=== PATIENT | male | born 1960 | race Caucasian/White ===

== ENCOUNTER 2017-08-19 07:41 | Day surgery (SDC) | payer BC ==
[2017-08-17 16:19] VITALS: BMI 26.5
[~2017-08-19 07:41] MED LIST: LACTATED RINGERS 1,000 ML IV SCH
[2017-08-19 08:07] VITALS: RESP 16; TEMP 97.6
[2017-08-19] MEDS ORDERED: LIDOCAINE 1% 20 ML VIAL (10MG/ML) FOR IV START INTRADERMA ONE (08:17)
[2017-08-19] MEDS ORDERED: PROPOFOL 10 MG/ML 20 ML VIAL IV ONE (09:13)
[2017-08-19] MEDS ORDERED: LIDOCAINE 1% INJ 10MG/ML (20 ML MDV) ONE (09:13)
--- NOTE | 2017-08-19 09:17 | P.GSHP ---
History of Present Illness H&P Date: 08/19/17 Chief Complaint: Screening colonoscopy 's is a 56-year-old male referred from Dr. Jossy noland. Patient presents today for screening colonoscopy. He denies any significant GI complaints. Patient's previous history of right colectomy for colonic polyps. Past Medical History Past Medical History: Hypertension Additional Past Medical History / Comment(s): GLAUCOMA RIGHT EYE, STRAINED TENDON RIGHT FOOT, HX OF HEPATITIS C WITH TX 2016., HX OF RIGHT HEMICOLECTOMY FOR PRECANCEROUS POLYPS (2009). History of Any Multi-Drug Resistant Organisms: None Reported Past Surgical History: Bowel Resection, Orthopedic Surgery Additional Past Surgical History / Comment(s): RIGHT CATARACT WITH LENS IMPLANT & STENT., RIGHT ANKLE FX WITH PINS & HARDWARE., RIGHT HEMICOLECTOMY (1/3 OF BOWEL REMOVED-2009) Past Anesthesia/Blood Transfusion Reactions: No Reported Reaction Past Psychological History: No Psychological Hx Reported Smoking Status: Never smoker Past Alcohol Use History: Abuse Additional Past Alcohol Use History / Comment(s): NO ALCOHOL FOR 2 WEEKS- TAKING ANTABUSE., STATES HX OF HEAVY ALCOHOL USE -SOME DAYS 1 PINT/DAY Past Drug Use History: Marijuana Additional Drug Use History / Comment(s): NO CURRENT MARIJUANA USE - Past Family History Father Family Medical History: Cancer Additional Family Medical History / Comment(s): LEUKEMIA Medications and Allergies Home Medications Medication Instructions Recorded Confirmed Type Bimatoprost [Lumigan .01% Ophth 1 drop RIGHT EYE HS 08/17/17 08/17/17 History Soln] Brimonidine Tartrate [Alphagan P 1 drops RIGHT EYE BID 08/17/17 08/17/17 History 0.15% Ophth Soln] Disulfiram [Antabuse] 250 mg PO DAILY 08/17/17 08/17/17 History Ibuprofen 200 mg PO DAILY PRN 08/17/17 08/17/17 History Losartan [Cozaar] 25 mg PO DAILY 08/17/17 08/17/17 History Allergies Allergy/AdvReac Type Severity Reaction Status Date / Time adhesive tape AdvReac Unknown RED Verified 08/19/17 07:56 IRRITATED SKIN Surgical - Exam Vital Signs Temp Pulse Resp BP Pulse Ox 97.6 F 76 16 137/88 97 08/19/17 08:06 08/19/17 08:06 08/19/17 08:06 08/19/17 08:06 08/19/17 08:06 - General well developed, no distress - Eyes PERRL - ENT normal pinna - Neck no masses - Respiratory normal expansion - Cardiovascular Rhythm: regular - Abdomen Abdomen: soft, non tender Assessment and Plan Assessment: History of colonic polyps. We'll perform colonoscopy.
--- NOTE | 2017-08-19 09:36 | P.OP ---
Date of Procedure: 08/19/17 Preoperative Diagnosis: Screening colonoscopy Postoperative Diagnosis: Mild Diverticulosis Procedure(s) Performed: Colonoscopy Anesthesia: MAC Surgeon: Tuan Rhodes Pathology: none sent Condition: stable Disposition: PACU Description of Procedure: The patient's placed on the endoscopy table lateral position. He received IV sedation. Digital rectal exam was performed which revealed no abnormalities. The flexible colonoscope was then placed patient anus passed throughout the entire colon. The patient a previous right colectomy. The ileocolonic anastomosis was visualized. The transverse colon and descending colon appeared normal. In the sigmoid colon there was a few scattered diverticula. Scope was then brought back the rectum and this appeared normal. Scope was withdrawn for patient.
[2017-08-19 10:01] VITALS: BP 121/89; PULSE 52
== END 2017-08-19 10:05 | disposition home or self-care (01) ==
LOC: ORWHC2ENDO 07:41
PROVIDERS: ATTEND Surgery
DX: Z12.11 Encounter for screening for malignant neoplasm of colon (principal); K57.30 Diverticulosis of large intestine without perforation or abscess without bleeding; I10 Essential (primary) hypertension; E78.5 Hyperlipidemia, unspecified; Z86.010 Personal history of colon polyps; Z91.048 Other nonmedicinal substance allergy status; Z79.899 Other long term (current) drug therapy; Z86.19 Personal history of other infectious and parasitic diseases; Z98.0 Intestinal bypass and anastomosis status; Z90.49 Acquired absence of other specified parts of digestive tract
CPT/HCPCS: J2001; J2704; G0105

== ENCOUNTER 2019-08-10 14:08 | Inpatient (IN) | payer BC, MEDICAID, OTHER ==
--- NOTE | 2019-08-10 15:14 | ED ---
Psych HPI <Yuriy Echevarria - Last Filed: 08/10/19 22:25> <Diomedes Leblanc - Last Filed: 08/11/19 11:28> - General Source: patient, RN notes reviewed Mode of arrival: ambulatory - History of Present Illness MD Complaint: suicidal ideation, feels depressed <Miguel Fitzpatrick - Last Filed: 08/11/19 15:38> - General Chief Complaint: Psychiatric Symptoms Stated Complaint: mental health eval Time Seen by Provider: 08/10/19 14:33 - History of Present Illness Initial Comments: This is a 58-year-old male with a history of depression who does admit to drinking alcohol and using crack cocaine who was brought in today for evaluation because he initially depressed. He does not seem to have a plan is how to hurt himself however. He does admit to drinking alcohol today and using cocaine recently. He is feeling depressed over multiple issues he states his last September. He's been involved with a personal was in his building that he loves no complaints of modifying factors at this time (Miguel Fitzpatrick) - Related Data Home Medications Medication Instructions Recorded Confirmed Bimatoprost [Lumigan .01% Ophth 1 drop RIGHT EYE HS 08/17/17 08/17/17 Soln] Brimonidine Tartrate [Alphagan P 1 drops RIGHT EYE BID 08/17/17 08/17/17 0.15% Ophth Soln] Disulfiram [Antabuse] 250 mg PO DAILY 08/17/17 08/17/17 Ibuprofen 200 mg PO DAILY PRN 08/17/17 08/17/17 Losartan [Cozaar] 25 mg PO DAILY 08/17/17 08/17/17 Allergies Allergy/AdvReac Type Severity Reaction Status Date / Time adhesive tape AdvReac Unknown RED Verified 08/10/19 14:16 IRRITATED SKIN Review of Systems ROS Other: All systems not noted in ROS Statement are negative. <Yuriy Echevarria - Last Filed: 08/10/19 22:25> ROS Other: All systems not noted in ROS Statement are negative. <Diomedes Leblanc - Last Filed: 08/11/19 11:28> ROS Other: All systems not noted in ROS Statement are negative. <Miguel Fitzpatrick - Last Filed: 08/11/19 15:38> ROS Statement: Those systems with pertinent positive or pertinent negative responses have been documented in the HPI. Past Medical History Past Medical History: Hypertension Additional Past Medical History / Comment(s): GLAUCOMA RIGHT EYE, STRAINED TENDON RIGHT FOOT, HX OF HEPATITIS C WITH TX 2017., HX OF RIGHT HEMICOLECTOMY FOR PRECANCEROUS POLYPS (2009). History of Any Multi-Drug Resistant Organisms: None Reported Past Surgical History: Bowel Resection, Orthopedic Surgery Additional Past Surgical History / Comment(s): RIGHT CATARACT WITH LENS IMPLANT & STENT., RIGHT ANKLE FX WITH PINS & HARDWARE., RIGHT HEMICOLECTOMY (1/3 OF BOWEL REMOVED-2009) Past Anesthesia/Blood Transfusion Reactions: No Reported Reaction Past Psychological History: Depression Smoking Status: Never smoker Past Alcohol Use History: Abuse Past Drug Use History: Marijuana - Past Family History Father Family Medical History: Cancer Additional Family Medical History / Comment(s): LEUKEMIA <Miguel Fitzpatrick Filed: 08/11/19 15:38> General Exam Limitations: no limitations General appearance: alert, anxious Head exam: Present: atraumatic, normocephalic, normal inspection Eye exam: Present: normal appearance, PERRL, EOMI. Absent: scleral icterus, conjunctival injection, periorbital swelling ENT exam: Present: normal exam, mucous membranes moist Neck exam: Present: normal inspection. Absent: tenderness, meningismus, lymphadenopathy Respiratory exam: Present: normal lung sounds bilaterally. Absent: respiratory distress, wheezes, rales, rhonchi, stridor Cardiovascular Exam: Present: regular rate, normal rhythm, normal heart sounds. Absent: systolic murmur, diastolic murmur, rubs, gallop, clicks GI/Abdominal exam: Present: soft, normal bowel sounds. Absent: distended, tenderness, guarding, rebound, rigid Extremities exam: Present: normal inspection, full ROM, normal capillary refill. Absent: tenderness, pedal edema, joint swelling, calf tenderness Back exam: Present: normal inspection Neurological exam: Present: alert, oriented X3, CN II-XII intact Psychiatric exam: Present: normal affect, depressed, flat affect, suicidal ideation Skin exam: Present: warm, dry, intact, normal color. Absent: rash <Miguel Fitzpatrick Filed: 08/11/19 15:38> - General Exam Comments Initial Comments: This is a well-developed well-nourished awake alert oriented times female he does have the smell of alcohol conjoiners on his breath (Miguel Fitzpatrick) Course <AmariMiguel - Last Filed: 08/11/19 15:38> Vital Signs 08/10/19 08/10/19 08/11/19 14:10 16:11 06:00 Temperature 98.0 F 98.4 F Pulse Rate 94 97 Respiratory 18 18 18 Rate Blood Pressure 136/92 135/96 O2 Sat by Pulse 97 97 Oximetry 08/11/19 08/11/19 09:03 11:57 Temperature 98.4 F 98.4 F Pulse Rate 73 84 Respiratory 18 18 Rate Blood Pressure 143/92 157/84 O2 Sat by Pulse 97 100 Oximetry - Reevaluation(s) Reevaluation #1: 08/10/19 15:13 The patient did register 0.236 on the breath alcohol test. Patient care will be endorsed to Dr. Echevarria at our shift change (Miguel Fitzpatrick) Reevaluation #2: 08/11/19 15:37 The patient was resting comfortably throughout the morning and afternoon hours and was admitted to the psychiatric unit for evaluation depression and suicidal ideation (Miguel Fitzpatrick) Medical Decision Making <Yuriy Echevarria - Last Filed: 08/10/19 22:25> <Diomedes Leblanc - Last Filed: 08/11/19 11:28> - Medical Decision Making Patient care was signed out to me by previous shift physician Dr. Fitzpatrick. Plan at sign out was to follow-up with EPS recommendations. Patient will be evaluated as early as 10:30 PM by EPS based on patient's a call test. During my shift patient has not been evaluated by EPS yet. He is signed out to oncoming physician Dr. Toscano (Yuriy Echevarria) I request of emergency psychiatric services ideally patient for rash on dorsum of the forearms. Scab skin excoriations are noted. Patient reports his abdominal ongoing for approximately a month. Patient was seen in the health department and was treated with permethrin for scabies. Patient reports that it has been since improving. States that one other friend at his house also had the same rash. Denies any other areas of rash. No oropharyngeal involvement. (Diomedes Leblanc) - Lab Data Lab Results 08/10/19 Range/Units 23:31 Urine Opiates Screen Not Detected (NotDetected) Ur Oxycodone Screen Not Detected (NotDetected) Urine Methadone Screen Not Detected (NotDetected) Ur Propoxyphene Screen Not Detected (NotDetected) Ur Barbiturates Screen Not Detected (NotDetected) U Tricyclic Antidepress Not Detected (NotDetected) Ur Phencyclidine Scrn Not Detected (NotDetected) Ur Amphetamines Screen Not Detected (NotDetected) U Methamphetamines Scrn Detected H (NotDetected) U Benzodiazepines Scrn Not Detected (NotDetected) Urine Cocaine Screen Detected H (NotDetected) U Marijuana (THC) Screen Detected H (NotDetected) Disposition <Yuriy Echevarria - Last Filed: 08/10/19 22:25> <Diomedes Leblanc - Last Filed: 08/11/19 11:28> <Miguel Fitzpatrick - Last Filed: 08/11/19 15:38> Clinical Impression: Depression, Alcohol intoxication, Suicidal ideation Disposition: TRANSFER TO PSYCH HOSP/UNIT Condition: Fair
[2019-08-10] MEDS ORDERED: ACETAMINOPHEN TAB 500 MG TAB PO STA (21:53)
[2019-08-10] MEDS ORDERED: IBUPROFEN 600 MG TAB PO STA (21:53)
[2019-08-11 00:30] LABS: Amphetamine Screen,Urine Not Detected (NotDetected); Barbiturate Screen,Urine Not Detected (NotDetected); Benzodiazepines Screen,Urine Not Detected (NotDetected); Cocaine Screen,Urine Detected (NotDetected); Methadone Screen, Urine Not Detected (NotDetected); Opiate Screen,Urine Not Detected (NotDetected); Oxycodone Screen, Urine Not Detected (NotDetected); Phencyclidine Screen,Urine Not Detected (NotDetected); Tricyclic Antidepressant,Urine Not Detected (NotDetected); Urn Cannabinoid Scrn Detected (NotDetected)
[2019-08-11] MEDS ORDERED: LORazepam 1 MG TAB PO STA ×2 (03:00→11:53)
[2019-08-11] MEDS ORDERED: MAG HYDROX/AL HYDROX/SIMETH 30 ML CUP PO PRN (14:58)
[2019-08-11] MEDS ORDERED: ZIPRASIDONE 20 MG VIAL IM PRN (14:58)
[2019-08-11] MEDS ORDERED: MAGNESIUM HYDROXIDE 2,400 MG/10 ML CUP PO PRN (14:58)
--- NOTE | 2019-08-11 19:07 | CONS ---
CONSULTATION DATE OF SERVICE: 08/11/2019 REASON FOR CONSULTATION: Advice regarding hypertension and other multiple medical issues requested by Psychiatry. HISTORY OF PRESENT ILLNESS: This 58 -year-old gentleman with a past medical history of hypertension, glaucoma, history of DJD, history of bowel resection, history of depression, being followed by Dr. Jossy Aldrich in the outpatient setting was admitted for psychiatric evaluation. The patient had depression. She also had substance abuse history including cocaine and alcohol. The patient also had a feeling of bugs crawling under the skin and patient is also scratching and itching in both hands resulting in skin lesions at this time. There is no history of fever, rigors, chills at this time. PAST MEDICAL HISTORY: History of hypertension, glaucoma, history of bowel resection, history of DJD, history of depression. MEDICATIONS: Prior to admission home medications are: 1. Cozaar 25 mg p.o. 2. Ibuprofen 200 mg daily p.r.n. 3. Antabuse 250 mg p.o. daily. 4. Alphagan 1 drop b.i.d. 5. Lumigan 1 drop right eye q.h.s. ALLERGIES: ADHESIVE TAPE. FAMILY HISTORY: History of leukemia, cancer in the family. SOCIAL HISTORY: No history of smoking. Occasional alcohol intake and THC. REVIEW OF SYSTEMS: ENT: No diminished vision. No diminished hearing. CARDIOVASCULAR: No angina or palpitations. RESPIRATORY: No cough or hemoptysis. GI no nausea. no dysuria. NERVOUS System as mentioned earlier. Allergies/Immunology: No asthma or hayfever. Musculoskeletal as mentioned earlier. Hematology/Oncology: No history of anemia. Endocrine: No history of diabetes or hypothyroidism. CONSTITUTIONAL: As mentioned earlier. DERMATOLOGY mentioned earlier. Rheumatology: Negative. Psychiatric: As mentioned earlier. PHYSICAL EXAMINATION: Alert and oriented x3. Pulse is 99. Blood pressure 140/90, respiration 20, temperature 99.4, pulse ox 100 percent on room air. HEENT: Conjunctivae normal. Oral mucosa moist. NECK is no jugular venous distention. No carotid bruit. No lymph node enlargement. CARDIOVASCULAR systems: S1, S2 muffled. RESPIRATIONS: Breath sounds diminished in the bases. No rhonchi. No crackles. ABDOMEN: Soft, nontender. No mass palpable. LEGS no edema. No swelling. NERVOUS SYSTEM : Higher functions as mentioned. Eye movements full in all directions. No nystagmus. No diplopia. No facial deviation. The jaw opens in the midline. Otherwise nervous system: Motor power is equal in all 4 limbs. No wasting and no signs of cerebellar dysfunction. Gait is normal. SKIN maculopapular lesions in the left forearm, more than the right secondary to itching and picking the skin. Patient reports bugs crawling out. LABS: Methamphetamine is positive. Cocaine antigen is positive. ASSESSMENT: 1. Possible acute psychosis for evaluation. 2. Multiple skin lesions of both upper arms. 3. Methamphetamine and cocaine, marijuana from the drug screen. 4. History of hypertension. 5. History of glaucoma. 6. History of hepatitis. 7. History of right hemicolectomy. 8. History of degenerative joint disease. 9. History of depression. 10.History of ETOH abuse. 11.History of THC. 12.FULL CODE. RECOMMENDATIONS AND DISCUSSION: This 58-year-old gentleman who presented with multiple complex medical issues, we will monitor the patient closely. Continue the current medications. I recommend resume the home medications. Also recommend local ointment for the skin lesions and we will resume the home medications once they are confirmed. Otherwise, I will be happy to review abnormal labs. We will follow the patient closely with you. Patient may be asked to follow with Dr. Jossy Aldrich after discharge for continued follow up. MMJAVIERL / VIVIANN: [id number] / MTDD
[2019-08-11] MEDS: TRIAMCINOLONE 0.1% CREAM 80 GM TUBE TOPICAL SCH (22:37)
[2019-08-11] MEDS: LORazepam 1 MG TAB PO PRN (23:17)
[2019-08-12 08:14] LABS: Basophils % (A) 1 %; Eosinophils # (A) 0.2 k/uL (0-0.7); Eosinophils % (A) 3 %; HCT 49.6 % (39.0-53.0); HGB 16.3 gm/dL (13.0-17.5); Lymphocytes # (A) 1.6 k/uL (1.0-4.8); Lymphocytes % (A) 24 %; MCH 30.4 pg (25.0-35.0); MCHC 32.9 g/dL (31.0-37.0); MCV 92.3 fL (80.0-100.0); Mean Platelet Volume 7.4; Monocytes # (A) 0.6 k/uL (0-1.0); Monocytes % (A) 9 %; Neutrophils # (A) 3.9 k/uL (1.3-7.7); Neutrophils % (A) 60 %; Platelet Count 247 k/uL (150-450); RBC 5.37 m/uL (4.30-5.90); RDW 13.6 % (11.5-15.5); WBC 6.6 k/uL (3.8-10.6)
[2019-08-12 08:22] LABS: AST 600 U/L (17-59); African American GFR (CKD) >90 (>60 ml/min/1.73 sqM); Albumin 4.1 g/dL (3.5-5.0); Alkaline Phosphatase 93 U/L (38-126); Anion Gap 6 mmol/L; Blood Urea Nitrogen 9 mg/dL (9-20); Calcium 9.3 mg/dL (8.4-10.2); Carbon Dioxide 28 mmol/L (22-30); Chloride 101 mmol/L (98-107); Glucose 107 mg/dL (74-99); Non-African American GFR(CKD) >90 (>60 ml/min/1.73 sqM); Potassium 4.5 mmol/L (3.5-5.1); Sodium 135 mmol/L (137-145); Total Bilirubin 1.1 mg/dL (0.2-1.3); Total Protein 8.3 g/dL (6.3-8.2)
[2019-08-12 08:30] LABS: ALT 761 U/L (4-49)
[2019-08-12] MEDS: ACETAMINOPHEN TAB 325 MG TAB PO PRN ×2 (09:27→13:48)
[2019-08-12] MEDS: TRIAMCINOLONE 0.1% CREAM 80 GM TUBE TOPICAL SCH ×2 (09:27→22:20)
[2019-08-12] MEDS: LORazepam 1 MG TAB PO PRN (09:27)
--- NOTE | 2019-08-12 13:31 | P.HP ---
Psychiatric H&P - . H&P Date: 08/12/19 History & Physical: Allergies Allergy/AdvReac Type Severity Reaction Status Date / Time adhesive tape AdvReac Unknown RED Verified 08/10/19 14:16 IRRITATED SKIN Vital Signs Temp 98.5 F 08/12/19 09:24 Pulse 125 H 08/12/19 09:24 Resp 16 08/12/19 09:24 BP 132/96 08/12/19 09:24 Pulse Ox 98 08/12/19 09:24 Intake & Output 08/11/19 08/12/19 08/12/19 18:59 06:59 18:59 Weight 77.111 kg Laboratory Last Values WBC 6.6 k/uL (3.8-10.6) 08/12/19 07:55 RBC 5.37 m/uL (4.30-5.90) 08/12/19 07:55 Hgb 16.3 gm/dL (13.0-17.5) 08/12/19 07:55 Hct 49.6 % (39.0-53.0) 08/12/19 07:55 MCV 92.3 fL (80.0-100.0) 08/12/19 07:55 MCH 30.4 pg (25.0-35.0) 08/12/19 07:55 MCHC 32.9 g/dL (31.0-37.0) 08/12/19 07:55 RDW 13.6 % (11.5-15.5) 08/12/19 07:55 Plt Count 247 k/uL (150-450) 08/12/19 07:55 Neutrophils % 60 % 08/12/19 07:55 Lymphocytes % 24 % 08/12/19 07:55 Monocytes % 9 % 08/12/19 07:55 Eosinophils % 3 % 08/12/19 07:55 Basophils % 1 % 08/12/19 07:55 Neutrophils # 3.9 k/uL (1.3-7.7) 08/12/19 07:55 Lymphocytes # 1.6 k/uL (1.0-4.8) 08/12/19 07:55 Monocytes # 0.6 k/uL (0-1.0) 08/12/19 07:55 Eosinophils # 0.2 k/uL (0-0.7) 08/12/19 07:55 Basophils # 0.0 k/uL (0-0.2) 08/12/19 07:55 Sodium 135 mmol/L (137-145) L 08/12/19 07:55 Potassium 4.5 mmol/L (3.5-5.1) 08/12/19 07:55 Chloride 101 mmol/L (98-107) 08/12/19 07:55 Carbon Dioxide 28 mmol/L (22-30) 08/12/19 07:55 Anion Gap 6 mmol/L 08/12/19 07:55 BUN 9 mg/dL (9-20) 08/12/19 07:55 Creatinine 0.80 mg/dL (0.66-1.25) 08/12/19 07:55 Est GFR (CKD-EPI)AfAm >90 (>60 ml/min/1.73 sqM) 08/12/19 07:55 Est GFR (CKD-EPI)NonAf >90 (>60 ml/min/1.73 sqM) 08/12/19 07:55 Glucose 107 mg/dL (74-99) H 08/12/19 07:55 Calcium 9.3 mg/dL (8.4-10.2) 08/12/19 07:55 Total Bilirubin 1.1 mg/dL (0.2-1.3) 08/12/19 07:55 AST 600 U/L (17-59) H 08/12/19 07:55 ALT 761 U/L (4-49) H 08/12/19 07:55 Alkaline Phosphatase 93 U/L (38-126) 08/12/19 07:55 Total Protein 8.3 g/dL (6.3-8.2) H 08/12/19 07:55 Albumin 4.1 g/dL (3.5-5.0) 08/12/19 07:55 TSH 1.350 mIU/L (0.465-4.680) 08/12/19 07:55 Urine Opiates Screen Not Detected (NotDetected) 08/10/19 23:31 Ur Oxycodone Screen Not Detected (NotDetected) 08/10/19 23:31 Urine Methadone Screen Not Detected (NotDetected) 08/10/19 23:31 Ur Propoxyphene Screen Not Detected (NotDetected) 08/10/19 23:31 Ur Barbiturates Screen Not Detected (NotDetected) 08/10/19 23:31 U Tricyclic Antidepress Not Detected (NotDetected) 08/10/19 23:31 Ur Phencyclidine Scrn Not Detected (NotDetected) 08/10/19 23:31 Ur Amphetamines Screen Not Detected (NotDetected) 08/10/19 23:31 U Methamphetamines Scrn Detected (NotDetected) H 08/10/19 23:31 U Benzodiazepines Scrn Not Detected (NotDetected) 08/10/19 23:31 Urine Cocaine Screen Detected (NotDetected) H 08/10/19 23:31 U Marijuana (THC) Screen Detected (NotDetected) H 08/10/19 23:31 08/12/19 13:24 IDENTIFYING DATA: 58-year-old HPI: Patient admitted to the inpatient psychiatric unit on a voluntary basis with recent depression. Patient states it's been really emotional lately with a lot of financial stress and some depression. He relates that he is alert money to a male and female that had moved into his house. He started having feelings for the female and there was stress in these relationships. He also states that someone has his car and his 401(k) is gone. He states that he was drinking and crying, he denies having thoughts of harm to himself. He does admit to anxiety and being a worrier. PAST PSYCHIATRIC HISTORY: He's had at least one previous admission [facility] and he did take an antidepressant which solely was helpful for him he has heard of Lexapro and thinks that he was on duloxetine. he has never had any times where he has tried to hurt himself. PMH: Foot pain ALLERGIES: Adhesive tape MEDICATIONS: Tylenol when necessary, Maalox when necessary, Ativan when necessary, milk of magnesia when necessary, Kenalog, Geodon when necessary CHEMICAL DEPENDENCY HISTORY: Patient states that he has some alcohol use, says he can't drink more than 2-3 days at a time. FAMILY PSYCHIATRIC HISTORY: Denies FAMILY CHEMICAL DEPENDENCY HISTORY: None known at this time SOCIAL HISTORY: He says his this past September. He was working at [employer] that was terminated from that position. He states he had a male and female admitted to help them with his . His 2 brothers and one sister. He is just the one time, has 1 son MENTAL STATUS EXAM: He is alert and cooperative with the interview. His speech is fluent, not rapid or pressured. Thought processes are organized. He denied dealing with thoughts of harm to self prompting admission and denies any thoughts of harm to others, does not verbalize any current thoughts of harm to self. He describes his mood as "kind of sad." Cognitively he appears very grossly intact. I do not notice any significant disorientation or memory disturbance. Insight is adequate, judgment shows evidence of recent impairment. STRENGTHS/WEAKNESSES: Strengths-some family support; weaknessescoping skills INTELLECTUAL FUNCTIONING: Average IMPRESSIONS: Major depressive disorder recurrent; generalized anxiety disorder; rule out alcohol use disorder PLAN: Patient is admitted to the inpatient unit on a voluntary basis. He will placed on SP 15 minute precautions. Baseline laboratory room workup will be done the patient and medical consultation will be ordered. He'll participate in group and activity therapies. He will be reinitiated on Cymbalta 30 mg daily to help with depression and anxiety. We will look into any support systems. Estimated length of stay is 3-5 days. Prognosis is guarded.
[2019-08-12] MEDS: DULoxetine HCL 30 MG CAPSULE.DR PO SCH (13:48)
[2019-08-13 08:56] LABS: Albumin 4.1 g/dL (3.5-5.0); Bilirubin, Delta 0.3 mg/dL (0.0-0.2); Bilirubin,Unconjugated 0.9 mg/dL (0.0-1.1); Total Bilirubin 1.2 mg/dL (0.2-1.3); Total Protein 8.2 g/dL (6.3-8.2)
[2019-08-13] MEDS: LORazepam 1 MG TAB PO PRN (09:42)
[2019-08-13] MEDS: DULoxetine HCL 30 MG CAPSULE.DR PO SCH (09:42)
[2019-08-13] MEDS: TRIAMCINOLONE 0.1% CREAM 80 GM TUBE TOPICAL SCH ×3 (09:43→21:09)
[2019-08-13] MEDS ORDERED: LORazepam 1 MG TAB PO PRN (12:43)
--- NOTE | 2019-08-13 12:56 | P.PN ---
Progress Note - Text Progress Note Date: 08/13/19 Interval History: Patient was seen lying down in his bed this afternoon and was directable and a greeable to speak with health technical writer in the office. Patient appeared to have poor hygiene and grooming. He appeared to be fairly animated and talkative and was fairly distractible during the interview. He had several different ideas and topics that he wanted to discuss. He spoke about the financial stressors that led him to come in the hospital and his mood swings. He states that he was feeling depressed due to the stressors at home and having "a bunch of bad apples" referring to other roommates in his house that he feels he needs to "kick them out". He states that he did not sleep well last night however has been taking his medications. At this time patient denies any suicidal or homical ideations, intent or plan. Patient denies any auditory, visual hallucinations and denies any paranoia or delusions. Patient denies any side effects from the medications and has been compliant with meds. Mental Status Exam: General Appearance: Patient appears to be stated age is alert, difficult to re direct at times, animated and cooperative. Wearing hospital gown. Behavior: Patient is calmly seated without any agitated behavior. Attempts to cooperate. Speech: Patient's speech is fluent and nonpressured. Fairly talkative and tangential. Mood/Affect: Mood is "up and down", affect is congruent and expansive. Suicidality/Homicidality: Patient denies having any suicidal or homicidal ideation intent or plan. Perceptions: Patient denies any visual hallucinations and denies any auditory hallucinations Though content/process: Patient is tangential/circumstantial, logical, endorsing several stressors. Memory and concentration: AOX3, grossly intact for the purposes of this session Judgment and insight: Improving mildly Assessment Mood disorder unspecified, rule out substance-induced mood disorder line generalized anxiety disorder Alcohol abuse Cocaine use disorder Cannabis abuse Methamphetamine abuse Plan: -Patient continues to meet criteria for inpatient psychiatric admission for symptom stabilization and safety. Patient has signed adult voluntary form and medication consent and was placed in patient's chart. -Medications: Increase Cymbalta to 60 mg daily for mood/anxiety, started on Zyprexa 2.5 mg daily at bedtime for sleep/mood stabilization. -When necessary Ativan and Geodon for agitation/aggression. -CIWA protocol with when necessary Ativan for alcohol withdrawal. Vital signs reviewed. -NRT -need to this patient does not smoke. -SW on board for discharge planning. Encouraged the patient to participate in milieu. Biodiesel Technology Manager spoke with patient about different options for substance abuse treatment and patient states that he will think about them. Likely discharge back home in 2-3 days.
[2019-08-13] MEDS: OLANZapine 2.5 MG TAB PO SCH (20:39)
[2019-08-13] MEDS ORDERED: traZODone HCL 50 MG TAB PO SCH (21:00)
[2019-08-14] MEDS: TRIAMCINOLONE 0.1% CREAM 80 GM TUBE TOPICAL SCH ×2 (09:02→22:36)
[2019-08-14] MEDS: DULoxetine HCL 60 MG CAPSULE.DR PO SCH (09:02)
--- NOTE | 2019-08-14 13:03 | P.PN ---
Progress Note - Text Progress Note Date: 08/14/19 Interval History: Patient was seen lying down in his bed this afternoon and was directable and a greeable to speak with filing writer in the office. Patient appeared to have improving hygiene and grooming. She was more directable and appropriate today during the interview. Patient had less flight of ideas and racing thoughts and was more future oriented. He spoke about the people living in his house taking advantage of him and that his brother was driving up from [place] to see him. He claims that he was hopeful to move down to [place] with him. He claims that his mood has been gradually improving. He states that he is able to sleep throughout the night with no complaints. Patient was more logical and goal oriented during conversation. He states that he has been taking his medications. At this time patient denies any suicidal or homical ideations, intent or plan. Patient denies any auditory, visual hallucinations and denies any paranoia or delusions. Patient denies any side effects from the medications and has been compliant with meds. Mental Status Exam: General Appearance: Patient appears to be stated age is alert, difficult to redirect at times, animated and cooperative. Wearing hospital gown. Behavior: Patient is calmly seated without any agitated behavior. Attempts to cooperate. Speech: Patient's speech is fluent and nonpressured. More goal oriented. Mood/Affect: Mood is "better", affect is congruent Suicidality/Homicidality: Patient denies having any suicidal or homicidal ideation intent or plan. Perceptions: Patient denies any visual hallucinations and denies any auditory hallucinations Though content/process: Patient is less tangential/circumstantial, logical, more future oriented. Memory and concentration: AOX3, grossly intact for the purposes of this session Judgment and insight: Improving mildly Assessment Mood disorder unspecified, rule out substance-induced mood disorder Generalized anxiety disorder Alcohol abuse Cocaine use disorder Cannabis abuse Methamphetamine abuse Plan: -Patient continues to meet criteria for inpatient psychiatric admission for symptom stabilization and safety. Patient has signed adult voluntary form and medication consent and was placed in patient's chart. -Medications: Continue with Cymbalta to 60 mg daily for mood/anxiety, continue with Zyprexa 2.5 mg daily at bedtime for sleep/mood stabilization. -When necessary Ativan and Geodon for agitation/aggression. -WA protocol with when necessary Ativan for alcohol withdrawal. Vital signs reviewed. -NRT -need to this patient does not smoke. -SW on board for discharge planning. Encouraged the patient to participate in milieu. Wireworker spoke with patient about different options for substance abuse treatment and patient would like to do NA/AA meetings and is refusing inpatient substance use rehab. Likely discharge tomorrow and will be staying with family until his brother comes up to [place] to see him.
[2019-08-14] MEDS: OLANZapine 2.5 MG TAB PO SCH (19:55)
[2019-08-14] MEDS: ACETAMINOPHEN TAB 325 MG TAB PO PRN (19:55)
[2019-08-15 07:07] VITALS: BP 135/83; PULSE 75; RESP 16
[2019-08-15] MEDS: TRIAMCINOLONE 0.1% CREAM 80 GM TUBE TOPICAL SCH (08:58)
[2019-08-15] MEDS: DULoxetine HCL 60 MG CAPSULE.DR PO SCH (08:58)
--- NOTE | 2019-08-15 10:21 | P.DS ---
Providers Date of admission: 08/11/19 11:56 Expected date of discharge: 08/15/19 Attending physician: Bridger Tuttle MD Consults: 08/11/19 14:58 Consult Physician Routine Consulting Provider: Alejandro Aldrich Consult Reason/Comments: H and P Do you want consulting provider notified?: Yes Primary care physician: Jossy Aldrich - Discharge Diagnosis(es) (1) Unspecified mood [affective] disorder Current Visit: Yes Status: Acute Priority: High (2) Generalized anxiety disorder Current Visit: Yes Status: Acute Priority: Medium (3) Alcohol abuse Current Visit: Yes Status: Acute Priority: Medium (4) Cocaine use disorder Current Visit: Yes Status: Acute Priority: Medium (5) Cannabis abuse Current Visit: Yes Status: Acute Priority: Medium (6) Methamphetamine abuse Current Visit: Yes Status: Acute Priority: Medium Hospital Course: Admission HPI: Patient's H&P was completed by Dr. Gold "58-year-old . Patient admitted to the inpatient psychiatric unit on a voluntary basis with recent depression. Patient states it's been really emotional lately with a lot of financial stress and some depression. He relates that he is alert money to a male and female that had moved into his house. He started having feelings for the female and there was stress in these relationships. He also states that someone has his car and his 401(k) is gone. He states that he was drinking and crying, he denies having thoughts of harm to himself. He does admit to anxiety and being a worrier. He's had at least one previous admission [facility] and he did take an antidepressant which solely was helpful for him he has heard of Lexapro and thinks that he was on duloxetine. he has never had any times where he has tried to hurt himself." Hospital course: Upon admission to the unit patient was initially depressed and anxious and going through withdrawals from polysubstances. Patient was however directable and agreeable to commence treatment. Patient was placed on CIWA protocol with when necessary Ativan for alcohol withdrawal and vital signs were monitored. Patient got along well with other patients on the unit and followed unit protocol. Patient was compliant with the medications and denied any side effects throughout hospital course. Patient was started on Cymbalta and titrated up to a dose of 60 mg daily for mood/anxiety, Zyprexa was added 2.5 mg daily at bedtime for sleep/mood stabilization. Patient spoke of his stressors and engaged in therapy both group and individual. Patient was also seen by medical team for history and physical exam. Patient's UDS was positive for methamphetamine, cocaine and THC. Patient's AST/ALT was elevated however gradually improved during his hospitalization and were as follows, 600/761, 534/747, 472/704. Throughout the course of the hospitalization patient gradually improved with regards to mood, anxiety, sleep and became future oriented with improved insight and judgment. On the day of discharge patient denied any suyapa cidal or homicidal ideations intent or plan denied any auditory or visual hallucinations. Patient endorsed wanting to live for his health and his future. The patient denied any access to guns or weapons. Patient denied any paranoia and did not endorse any delusions. Patient does have a significant history of substance abuse and was counseled on abstaining from all substances including alcohol and marijuana. Patient refused inpatient substance abuse rehab and preferred to do outpatient NA/AA meetings instead with outpatient follow-up. Patient was also counseled on the medications and need for regular compliance and was encouraged to follow-up with their outpatient appointment for mental health and also for primary care. Prior to discharge a family meeting will be arranged by social media analyst to answer any questions and ensure safety upon discharge. Mental status exam: General Appearance: Patient appears to be thin, older than stated age is alert, pleasant, and cooperative. Patient is in no acute distress and has fair hygiene and grooming Behavior: Patient is calmly seated without any agitated behavior. Cooperative. Speech: Patient's speech is fluent and nonpressured. Mood/Affect: Patient reports their mood is "much better", affect is congruent and euthymic. Suicidality/Homicidality: Patient denies having any suicidal or homicidal ideation intent or plan. Perceptions: Patient denies any auditory or visual hallucinations. Though content/process: There is no evidence of any delusional thought content and thought process is linear and goal-directed. more future oriented Memory and concentration: AOX3, grossly intact for the purposes of this session. Can spell "WORLD" backwards correctly. Judgment and insight: Improved with guarded prognosis Impression: Mood disorder, unspecified rule out secondary to substance use Generalized anxiety disorder Cannabis abuse Cocaine abuse Alcohol use disorder Methamphetamine abuse Plan: -Continue with discharge today as patient has improved and stabilized psychiatrically and is not currently an imminent threat to himself and/or others. -Continue medications: Cymbalta 60 mg daily for mood/anxiety, Zyprexa 2.5 mg daily at bedtime for sleep/mood stabilization. -Patient was counseled on the need for medication compliance and appropriate follow-up at mental health and also primary care for medical issues. Patient verbalized understanding and agreed. -Social work to arrange for and conduct family meeting to ensure safety upon discharge and answer any questions/concerns. Social work also to arrange for patients follow up appointments for psychiatric care along with follow up with primary care provider. patient also to have repeat LFTs in one week after discharge. -social media analyst contacted and spoke with patient's brother who is driving up from [place] to be with patient and possibly help patient moved down to [place] with him in the coming weeks. - Patient will be given referral resources for different substance use treatment programs in the community along with AA/NA meetings. -Patient counseled on abstaining from recreational drugs and marijuana and alcohol. Was informed/educated on the adverse effects on their physical and mental health. Patient verbally agreed and understood. Patient was offered substance abuse treatment however declined at this time. -Patient was instructed to return to the hospital or seek immediate medical care if their psychiatric or medical symptoms do worsen or reoccur. Allergies Allergy/AdvReac Type Severity Reaction Status Date / Time adhesive tape AdvReac Unknown RED Verified 08/10/19 14:16 IRRITATED SKIN Laboratory Results WBC 6.6 k/uL (3.8-10.6) 08/12/19 07:55 RBC 5.37 m/uL (4.30-5.90) 08/12/19 07:55 Hgb 16.3 gm/dL (13.0-17.5) 08/12/19 07:55 Hct 49.6 % (39.0-53.0) 08/12/19 07:55 MCV 92.3 fL (80.0-100.0) 08/12/19 07:55 MCH 30.4 pg (25.0-35.0) 08/12/19 07:55 MCHC 32.9 g/dL (31.0-37.0) 08/12/19 07:55 RDW 13.6 % (11.5-15.5) 08/12/19 07:55 Plt Count 247 k/uL (150-450) 08/12/19 07:55 Neutrophils % 60 % 08/12/19 07:55 Lymphocytes % 24 % 08/12/19 07:55 Monocytes % 9 % 08/12/19 07:55 Eosinophils % 3 % 08/12/19 07:55 Basophils % 1 % 08/12/19 07:55 Neutrophils # 3.9 k/uL (1.3-7.7) 08/12/19 07:55 Lymphocytes # 1.6 k/uL (1.0-4.8) 08/12/19 07:55 Monocytes # 0.6 k/uL (0-1.0) 08/12/19 07:55 Eosinophils # 0.2 k/uL (0-0.7) 08/12/19 07:55 Basophils # 0.0 k/uL (0-0.2) 08/12/19 07:55 Sodium 135 mmol/L (137-145) L 08/12/19 07:55 Potassium 4.5 mmol/L (3.5-5.1) 08/12/19 07:55 Chloride 101 mmol/L (98-107) 08/12/19 07:55 Carbon Dioxide 28 mmol/L (22-30) 08/12/19 07:55 Anion Gap 6 mmol/L 08/12/19 07:55 BUN 9 mg/dL (9-20) 08/12/19 07:55 Creatinine 0.80 mg/dL (0.66-1.25) 08/12/19 07:55 Est GFR (CKD-EPI)AfAm >90 (>60 ml/min/1.73 sqM) 08/12/19 07:55 Est GFR (CKD-EPI)NonAf >90 (>60 ml/min/1.73 sqM) 08/12/19 07:55 Glucose 107 mg/dL (74-99) H 08/12/19 07:55 Calcium 9.3 mg/dL (8.4-10.2) 08/12/19 07:55 Total Bilirubin 1.2 mg/dL (0.2-1.3) 08/13/19 07:12 Conjugated Bilirubin 0.0 mg/dL (0.0-0.3) 08/13/19 07:12 Unconjugated Bilirubin 0.9 mg/dL (0.0-1.1) 08/13/19 07:12 Delta Bilirubin 0.3 mg/dL (0.0-0.2) H 08/13/19 07:12 AST 534 U/L (17-59) H 08/13/19 07:12 ALT 747 U/L (4-49) H 08/13/19 07:12 Alkaline Phosphatase 89 U/L (38-126) 08/13/19 07:12 Total Protein 8.2 g/dL (6.3-8.2) 08/13/19 07:12 Albumin 4.1 g/dL (3.5-5.0) 08/13/19 07:12 TSH 1.350 mIU/L (0.465-4.680) 08/12/19 07:55 Urine Opiates Screen Not Detected (NotDetected) 08/10/19 23:31 Ur Oxycodone Screen Not Detected (NotDetected) 08/10/19 23:31 Urine Methadone Screen Not Detected (NotDetected) 08/10/19 23:31 Ur Propoxyphene Screen Not Detected (NotDetected) 08/10/19 23:31 Ur Barbiturates Screen Not Detected (NotDetected) 08/10/19 23:31 U Tricyclic Antidepress Not Detected (NotDetected) 08/10/19 23:31 Ur Phencyclidine Scrn Not Detected (NotDetected) 08/10/19 23:31 Ur Amphetamines Screen Not Detected (NotDetected) 08/10/19 23:31 U Methamphetamines Scrn Detected (NotDetected) H 08/10/19 23:31 U Benzodiazepines Scrn Not Detected (NotDetected) 08/10/19 23:31 Urine Cocaine Screen Detected (NotDetected) H 08/10/19 23:31 U Marijuana (THC) Screen Detected (NotDetected) H 08/10/19 23:31 Vital Signs Temp 98.4 F 08/15/19 06:44 Pulse 75 08/15/19 06:44 Resp 16 08/15/19 06:44 BP 135/83 08/15/19 06:44 Pulse Ox 100 08/14/19 06:40 Patient Condition at Discharge: Stable Plan - Discharge Summary Discharge Rx Participant: No New Discharge Prescriptions: New DULoxetine HCL [Cymbalta] 60 mg PO DAILY 30 Days capsule. Triamcinolone 0.1% Cream [Kenalog 0.1% Cream] 1 applic TOPICAL BID #1 applic OLANZapine [ZyPREXA] 2.5 mg PO HS 30 Days tab Discontinued Ibuprofen 200 mg PO DAILY PRN PRN Reason: Pain Disulfiram [Antabuse] 250 mg PO DAILY Brimonidine Tartrate [Alphagan P 0.15% Ophth Soln] 1 drops RIGHT EYE BID Bimatoprost [Lumigan .01% Ophth Soln] 1 drop RIGHT EYE HS Losartan [Cozaar] 25 mg PO DAILY Discharge Medication List DULoxetine HCL [Cymbalta] 60 mg PO DAILY 30 Days capsule. 08/15/19 [Rx] OLANZapine [ZyPREXA] 2.5 mg PO HS 30 Days tab 08/15/19 [Rx] Triamcinolone 0.1% Cream [Kenalog 0.1% Cream] 1 applic TOPICAL BID #1 applic 08/15/19 [Rx] Follow up Appointment(s)/Referral(s): Fina Bueno [Other] - 1 Week (walk in intake tuesday- tuesday 8:30am -10:30 am 1 hour with therapist then will be set up [facility] management and ) Jossy Aldrich DO [Primary Care Provider] - 1-2 days Patient Instructions/Handouts: Mood Disorders (DC), Anxiety (ED), Alcohol Use Disorder (DC) Activity/Diet/Wound Care/Special Instructions: Activity and diet as tolerated. Avoid the use of street drugs and alcohol. Take all medications as prescribed. When you are in need of refills on your medications please contact your medical provider and/or outpatient psychiatrist to have this done. Please go to scheduled outpatient appointment for aftercare treatment. If symptoms return or become worse, call the crisis line at and/or go to the nearest emergency room for evaluation. Discharge Disposition: HOME SELF-CARE
[2019-08-15 10:52] LABS: Albumin 3.9 g/dL (3.5-5.0); Bilirubin, Delta 0.2 mg/dL (0.0-0.2); Bilirubin,Unconjugated 0.6 mg/dL (0.0-1.1); Total Bilirubin 0.8 mg/dL (0.2-1.3); Total Protein 7.7 g/dL (6.3-8.2)
[2019-08-15 13:20] VITALS: TEMP 98.9
== END 2019-08-15 14:15 | disposition home or self-care (01) | DRG 885 ==
LOC: EC 14:08 → 3MHU 08-11 11:56
PROVIDERS: ADMIT Psychiatry & Neurology Psychiatry; ATTEND Psychiatry & Neurology Psychiatry
DX: F39 Unspecified mood [affective] disorder (principal); R45.851 Suicidal ideations; F12.10 Cannabis abuse, uncomplicated; F14.10 Cocaine abuse, uncomplicated; F15.10 Other stimulant abuse, uncomplicated; F41.1 Generalized anxiety disorder; I10 Essential (primary) hypertension; B19.20 Unspecified viral hepatitis C without hepatic coma; F10.129 Alcohol abuse with intoxication, unspecified; M19.90 Unspecified osteoarthritis, unspecified site; H40.9 Unspecified glaucoma; Z79.899 Other long term (current) drug therapy; Z86.010 Personal history of colon polyps; Z91.048 Other nonmedicinal substance allergy status; Z90.49 Acquired absence of other specified parts of digestive tract; Z71.41 Alcohol abuse counseling and surveillance of alcoholic; Z71.51 Drug abuse counseling and surveillance of drug abuser
CPT/HCPCS: 80053; 80076; 80306; 82075; 84443; 85025; 99285